=== PATIENT | male | born 1935 | race African-American/Black ===

== ENCOUNTER 2022-07-01 15:05 | Emergency (ER) | payer SELFPAY ==
[~2022-07-01] VITALS: Ht 167.6 cm; Wt 75.0 kg
[2022-07-01 15:10] VITALS: BP 133/51
== END 2022-07-01 15:44 | disposition home or self-care (01) ==
LOC: ER 15:05
DX: U07.1 COVID-19 (principal)
CPT/HCPCS: 99283